=== PATIENT | female | born 1945 | race Caucasian/White ===

== ENCOUNTER 2023-01-21 16:29 | Emergency (ER) | payer OTHER ==
[2023-01-21 16:53] VITALS: BP 147/75; PULSE 96; RESP 16; TEMP 98.2; BMI 34.5
[2023-01-21] MEDS ORDERED: ACETAMINOPHEN 325 MG TABLET (FP) PO ONE (19:42)
[2023-01-21] MEDS ORDERED: AMOX TR/POT CLAV 875MG/125MG TABLETS (FP) PO ONE (19:42)
[2023-01-21] MEDS ORDERED: AMOX TR/POT CLAV 875MG/125MG TABLETS (FP) ONE (19:46)
[2023-01-21] MEDS ORDERED: ACETAMINOPHEN 325 MG TABLET (FP) ONE (19:47)
[2023-01-21 21:55] LABS: BASO % 0.4 % (0-2.0); EOS % 0.4 % (0-4.5); HEMATOCRIT 36.4 % (32.4-45.2); HEMOGLOBIN 12.2 GM/dL (10.7-15.3); LYMPH % 22.4 % (8-40); MCHC 33.5 g/dl (32.0-36.0); MEAN CELL VOLUME 92.6 fl (80-96); MEAN PLT VOLUME 7.5 fl (7.5-11.1); MONO % 8.6 % (3.8-10.2); NEUT % 68.2 % (42.8-82.8); PLATELET COUNT 253 10^3/uL (134-434); RBC 3.93 M/mm3 (3.60-5.2); RDW 13.5 % (11.6-15.6); WHITE BLOOD COUNT 9.6 K/mm3 (4.0-10.0)
[2023-01-21 22:21] LABS: CALCIUM 9.8 mg/dL (8.5-10.1)
[2023-01-21 22:23] LABS: ALBUMIN 3.6 g/dl (3.4-5.0); BLOOD UREA NITROGEN 12.2 mg/dL (7-18); MAGNESIUM 2.4 mg/dL (1.8-2.4)
[2023-01-21 22:25] LABS: CREATININE 0.7 mg/dL (0.55-1.3)
[2023-01-21 22:27] LABS: BILIRUBIN,TOTAL 0.8 mg/dL (0.2-1); TOT PROT 7.5 g/dl (6.4-8.2)
== END 2023-01-21 23:35 | disposition home or self-care (01) ==
LOC: JER 16:29 → JERFT 16:29 → JER 23:35
DX: H92.03 Otalgia, bilateral (principal); R42 Dizziness and giddiness; H66.91 Otitis media, unspecified, right ear; R05.9 Cough, unspecified; R51.9 Headache, unspecified; Z20.822 Contact with and (suspected) exposure to COVID-19
CPT/HCPCS: 0241U-QW; 36415; 70450-TC; 71046-TC-FY; 80053; 83735; 84484; 85025; 93005; 93010; 99285-25

== ENCOUNTER 2023-01-23 18:06 | Emergency (ER) | payer OTHER ==
[2023-01-23 18:23] VITALS: BP 126/70; PULSE 78; RESP 18; TEMP 98.4; BMI 34.9
[2023-01-23] MEDS ORDERED: predniSONE 20 MG TABLET (UD) PO ONE (19:58)
[2023-01-23] MEDS ORDERED: diphenhydrAMINE HCL 25 MG CAPSULE (FP) PO ONE ×2 (19:59→20:05)
[2023-01-23] MEDS ORDERED: predniSONE 20 MG TABLET (UD) ONE (20:05)
== END 2023-01-23 21:08 | disposition home or self-care (01) ==
LOC: JER 18:06
DX: J01.90 Acute sinusitis, unspecified (principal); H92.02 Otalgia, left ear; R42 Dizziness and giddiness
CPT/HCPCS: 99283-25